=== PATIENT | female | born 1965 | race Caucasian/White ===

== ENCOUNTER → 2024-10-15 | Day surgery (SDC) | payer MEDICAID ==
[~2024-10-15] VITALS: Ht 172.7 cm; Wt 55.0 kg
[~2024-10-15] MED LIST: AMLO-257 PO; ATROPINE SULFATE 0.1 MG/ML 10 ML SYRINGE IVP ONE; DiphenhydrAMINE HCL 50 MG/ML VIAL ONE; EPHEDrine SULFATE 50 MG/ML VIAL ONE; EPINEPHrine 1:10,000 [1 MG/10 ML] SYRINGE ONE; FLUMAZENIL 0.1 MG/ML 5 ML VIAL IVP ONE; LIDOCAINE/PF 2% 5 ML SYRINGE IVP ONE; NALOXONE HCL 0.4 MG/ML VIAL ONE; PROPOFOL 1% 20 ML VIAL IVP ONE; SODIUM CHLORIDE 0.9% 1,000 ML ONE; SODIUM TETRADECYL SULFATE 3% 60 MG/2 ML VIAL IVP ONE
[2024-10-15] MEDS: SODIUM CHLORIDE 0.9% 1,000 ML IV ONE (06:44)
== END | disposition still patient (30) ==
LOC: SURGERY 06:14
PROVIDERS: ATTEND Internal Medicine
DX: Z12.11 Encounter for screening for malignant neoplasm of colon (principal); K64.8 Other hemorrhoids; I10 Essential (primary) hypertension
CPT/HCPCS: 45378; J2704; J3490 ×2; J7030; J0171; J0461; J1200; J2310